=== PATIENT | female | born 1955 | race Caucasian/White ===

== ENCOUNTER 2017-01-16 14:27 | Emergency (ER) | payer OTHER ==
--- NOTE | 2017-01-16 15:25 | RAD ---
3 VIEW LEFT SHOULDER: Date: 01/16/17 INDICATION: Fall, pain. FINDINGS: No fracture or dislocation identified. There is a high-riding humeral head which can be seen in the setting of chronic rotator cuff tear. Osteoarthritis is present. IMPRESSION: Chronic findings of the left shoulder. No acute fracture or dislocation. POS: [facility]
--- NOTE | 2017-01-16 15:28 | RAD ---
3 VIEW LUMBAR SPINE: Date: 01/16/17 INDICATION: Pain, fall. FINDINGS: No compression fracture or subluxation. There is moderate multilevel degenerative change. IMPRESSION: No acute compression fracture. POS: [facility]
--- NOTE | 2017-01-16 15:33 | RAD ---
AP CHEST: Date: 01/16/17 HISTORY: Injury, status post fall. COMPARISON: 08/04/16. FINDINGS: Heart size is within normal limits for portable technique. The lungs are clear of infiltrative proce ss. No rib fractures or pneumothorax. IMPRESSION: Unremarkable AP chest. POS: [facility]
== END 2017-01-16 16:05 | disposition home or self-care (01) ==
LOC: BURERS 14:27
DX: S43.402A Unspecified sprain of left shoulder joint, initial encounter (principal); M54.5 Low back pain; F17.220 Nicotine dependence, chewing tobacco, uncomplicated; W10.9XXA Fall (on) (from) unspecified stairs and steps, initial encounter
CPT/HCPCS: 71010; 72100; 96372; J2270

== ENCOUNTER 2017-11-03 18:48 | Emergency (ER) | payer OTHER ==
[2017-11-03] MEDS ORDERED: Ketorolac Tromethamine 30 MG/ML VIAL ONE (20:10)
[2017-11-03 20:28] LABS: Bilirubin Negative (Negative); Blood, Urine Large (Negative); Clarity Cloudy (Clear); Glucose, Urine (Dipstick) Negative (Negative); Leukocyte Negative (Negative); Nitrite Negative (Negative); Protein, Urine (Dipstick) Trace mg/dL (Neg-Trace); Specific Gravity, Urine 1.025 (1.005-1.030)
[2017-11-03 20:31] LABS: ALT (SGPT) 12 U/L (8-55); AST (SGOT) 15 U/L (5-34); Albumin 4.1 g/dL (3.4-4.8); Alkaline Phosphatase 88 U/L (40-150); Anion Gap 14 mmol/L (10-20); BUN (Urea Nitrogen) 13 mg/dL (9.8-20.1); Bilirubin, Total 0.4 mg/dL (0.2-1.2); Calc. Creatinine Clearance 0 mL/min (70-130); Calcium 9.3 mg/dL (7.8-10.44); Carbon Dioxide 27 mmol/L (23-31); Chloride 104 mmol/L (98-107); Estimated GFR-MDRD 65; Globulin 3.6 g/dL (2.4-3.5); Glucose 108 mg/dL (80-115); Potassium 3.9 mmol/L (3.5-5.1); Protein, Total 7.7 g/dL (6.0-8.3); Sodium 141 mmol/L (136-145)
[2017-11-03 20:34] LABS: Eosinophils 3 % (0-10); Hemoglobin 13.4 g/dL (12.0-16.0); Lymphocytes 25 % (21-51); MDiff Complete? YES; Mean Corpuscular HGB CONC 33.2 g/dL (32.0-36.0); Mean Corpuscular Hemoglobin 31.3 pg (27.0-31.0); Mean Corpuscular Volume 94.3 fl (81.0-99.0); Mean Platelet Volume 6.6 fL (7.4-10.4); Monocytes 4 % (0-10); Neutrophil 68 % (42-75); Platelet Count 229 thou/uL (130-400); Red Blood Cell (RBC) Count 4.28 mill/uL (4.20-5.40); White Blood Cell (WBC) Count 6.9 thou/uL (4.8-10.8)
[2017-11-03 20:39] LABS: Bacteria/HPF 2+ HPF (None Seen); Crystals/HPF None Seen HPF (Negative); Hyaline Casts/LPF NONE SEEN LPF (0-3 Hyaline); Other Casts/LPF None Seen LPF (0-3 Hyaline); Oval Fat Bodies/HPF None Seen HPF (None Seen); Renal Epithelial None Seen HPF (0-3); Sperm/HPF None Seen HPF (None Seen); Transitional Epithelial NONE SEEN HPF (0-3); Trichomonas/HPF None Seen HPF (None Seen); Yeast-All Forms None Seen HPF (None Seen)
[2017-11-03] MEDS ORDERED: HYDROcodone/Acetaminophen 10/325 mg Tablet ONE (20:45)
--- NOTE | 2017-11-03 23:44 | CT ---
PRELIMINARY REPORT/[facility]/EMERGENCY AFTER HOURS PROCEDURE: EXAM: CT Abdomen and Pelvis Without Intravenous Contrast CLINICAL HISTORY: 62 years old, female; Pain; Abdominal pain; Flank; Left lower quadrant (llq); Patient HX: Llq pain si nce this am TECHNIQUE: Axial computed tomography images of the abdomen and pelvis without intravenous contrast. Coronal reformatted images were created and reviewed. COMPARISON: No relevant prior studies available. FINDINGS: Lower thorax: No acute findings. ABDOMEN: Liver: Unremarkable. Gallbladder and bile ducts: Unremarkable. No calcified stones. No ductal dilation. Pancreas: There is partial fatty replacement of the pancreas. No ductal dilation. Spleen: Unremarkable. No splenomegaly. Adrenals: Unremarkable. No mass. Kidneys and ureters: There is a 5 mm calculus in the terminal left ureter with mild left obstructive uropathy. There is additional nonobstructing left nephrolithiasis. Stomach and bowel: Unremarkable. No obstruction. No mucosal thickening. Appendix: The appendix is unremarkable and seen best on axial image 85 of series 2. PELVIS: Bladder: Unremarkable. No stones. Reproductive: There are postoperative changes of hysterectomy. ABDOMEN and PELVIS: Intraperitoneal space: Unremarkable. No free air. No significant fluid collection. Bones/joints: There is diffuse osteopenia and there are degenerative changes of the spine. No acute f racture. No dislocation. Soft tissues: Unremarkable. Vasculature: There are atherosclerotic aortic and iliac artery calcifications. No abdominal aortic aneurysm. Lymph nodes: Unremarkable. No enlarged lymph nodes. IMPRESSION: 1. There is a 5 mm calculus in the terminal left ureter with mild left obstructive uropathy. 2. There is additional nonobstructing left nephrolithiasis. Thank you for allowing us to participate in the care of your patient. Dictated and Authenticated by: Morgan Arnett MD 11/03/2017 8:24 PM Central Time ([place] & [place]) FINAL REPORT CT ABDOMEN AND PELVIS WITHOUT CONTRAST 11/03/2017 Comparison is made with the prior CT dated 08/04/2016 which was done with IV contrast. The lung bases are clear. The liver, spleen, pancreas, adrenal glands, and abdominal aorta showed no acute findings. The gallbladder is largely collapsed and is not well-evaluated. A non-obstructing calculus is seen in the left kidney. Additionally, there is a 4-5 mm distal left ureteral calculus a t the UVJ that is causing very mild left hydronephrosis and hydroureter. I do not see any right sarah l calculi. CT of the pelvis showed no pelvic masses, fluid collections, or inflammatory changes. IMPRESSION: 1. A 4-5 mm distal left ureteral calculus causing mild left hydronephrosis and hydroureter. 2. Small non-obstructing left renal calculus. Report in agreement with the preliminary reading by Lan. POS: [facility]
== END 2017-11-03 21:06 | disposition home or self-care (01) ==
LOC: BURERS 18:48
DX: N13.2 Hydronephrosis with renal and ureteral calculous obstruction (principal); F17.220 Nicotine dependence, chewing tobacco, uncomplicated
CPT/HCPCS: 74176; 80053; 81003; 81015; 85025; 87086; 94760; 96374; 96375; J1885

== ENCOUNTER 2018-07-14 14:32 | Outpatient (CLI) | payer MEDICAID ==
--- NOTE | 2018-07-14 16:59 | RAD ---
CHEST TWO VIEWS 07/14/18 The heart is normal in size. There is no mediastinal widening or shift. The right lung is clear. Ther e is an area of linear streaking in the lingula on the left side that is likely subsegmental atelecta sis. Sometimes this can be a secondary sign of an underlying rib fracture. No fractures were visible, but the ribs are not seen exceptionally well. Dedicated rib films will be needed to assess this fur ther if desired. There are no effusions or signs of pneumothorax. The trachea is midline. The other b carson structures also appear intact. IMPRESSION: Streaky subsegmental atelectasis in the lingula on the left side. Occasionally, this could be a secon makeda sign of an underlying rib fracture. POS: [facility]
== END 2018-07-14 14:33 | disposition home or self-care (01) ==
LOC: BURRAD 14:32
PROVIDERS: ATTEND Physician Assistant
DX: W19.XXXA Unspecified fall, initial encounter (principal); J98.11 Atelectasis
CPT/HCPCS: 71046

== ENCOUNTER 2018-07-22 11:10 | Outpatient (CLI) | payer MEDICAID ==
--- NOTE | 2018-07-22 15:25 | RAD ---
LEFT RIBS 3 VIEWS: Date: 07/22/18 HISTORY: Patient fell 2 days ago. Pain. COMPARISON: None. FINDINGS: There is a minimally displaced fracture involving the lateral left third and fourth ribs. Evaluation of the lower ribs is limited on this examination. IMPRESSION: Fracture of lateral third and fourth ribs. POS: [facility]
== END 2018-07-22 11:11 | disposition home or self-care (01) ==
LOC: BURRAD 11:10
PROVIDERS: ATTEND Physician Assistant
DX: R07.81 Pleurodynia (principal); S22.42XA Multiple fractures of ribs, left side, initial encounter for closed fracture

== ENCOUNTER 2018-12-14 14:40 | Outpatient (CLI) | payer MEDICAID ==
--- NOTE | 2018-12-14 18:44 | RAD ---
RIGHT FIFTH FINGER 12/14/18 No major fracture was seen. There is a small cortical irregularity at the base of the proximal phalan x of the fifth digit, however. it appears more old than new, but if it correlated with the exact site of pain, then followup films in 7 to 10 days might be in order. There is no dislocation. IMPRESSION: No definite acute finding. Cortical irregularity of the proximal phalanx that seems more likely old t oconnor new, but see discussion above. Code T POS: [facility]
--- NOTE | 2018-12-14 18:50 | RAD ---
RIGHT HAND THREE VIEWS: 12/14/18 No major fracture was appreciated, though the patient's osteoporosis could mask subtle injuries. The carpal relationships seem normal. As noted on the film of the fifth finger, there is a small cortical irregularity at the base of the proximal phalanx that may or may not be currently significant. IMPRESSION: No definite acute finding. POS: [facility]
--- NOTE | 2018-12-14 18:52 | RAD ---
NASAL BONES 12/14/18 There is a small line of the distal end of the nasal bone on the right lateral view that suggests the re is probably a small nondisplaced fracture here. The septum is midline. The maxillary sinuses seem clear. The visible orbital rims appear intact. IMPRESSION: Probable small nondisplaced fractures of the nasal bones, most likely right side. Code T POS: [facility]
== END 2018-12-14 14:41 | disposition home or self-care (01) ==
LOC: BURRAD 14:40
PROVIDERS: ATTEND Physician Assistant
DX: S09.92XA Unspecified injury of nose, initial encounter (principal); M79.641 Pain in right hand; M79.644 Pain in right finger(s)
CPT/HCPCS: 70160

== ENCOUNTER 2018-12-22 09:06 | Outpatient (CLI) | payer MEDICAID ==
--- NOTE | 2018-12-23 07:26 | RAD ---
RIGHT FIFTH FINGER 12/22/18 Today's exam shows that there is a very subtle fracture at the base of the fifth proximal phalanx. Th ere is no displacement. The IP joints of the finger appear normal. IMPRESSION: Subtle undisplaced fracture at the base of the proximal phalanx. POS: [facility]
--- NOTE | 2018-12-23 07:26 | RAD ---
RIGHT HAND THREE VIEWS: 12/22/18 Comparison is made with 12/14 study. On the prior study, it was noted that there was a slightly irregu larity at the base of the proximal phalanx of the fifth finger, but it was not definite for fracture. a repeat study today confirms there is in fact a small undisplaced fracture in this location. It ext ends into the fifth MCP joint. There is no displacement. IMPRESSION: Undisplaced fracture at the base of the proximal phalanx of the fifth digit. More definite on today's film than the prior one. Code T POS: HOME
== END 2018-12-22 09:07 | disposition home or self-care (01) ==
LOC: BURRAD 09:06
PROVIDERS: ATTEND Physician Assistant
DX: M79.644 Pain in right finger(s) (principal); S62.616A Displaced fracture of proximal phalanx of right little finger, initial encounter for closed fracture; W19.XXXA Unspecified fall, initial encounter

== ENCOUNTER 2020-12-13 14:23 | Outpatient (CLI) | payer MEDICAID | END 2020-12-13 14:24 | disposition home or self-care (01) | LOC: BURRAD 14:23 | PROVIDERS: ATTEND Physician Assistant | DX: M25.511 Pain in right shoulder (principal); M25.531 Pain in right wrist; G89.11 Acute pain due to trauma; W19.XXXA Unspecified fall, initial encounter ==

== ENCOUNTER 2021-04-05 11:47 | Outpatient (CLI) | payer MEDICAID | END 2021-04-05 11:48 | disposition home or self-care (01) | LOC: BURRAD 11:47 | PROVIDERS: ATTEND Family Medicine | DX: S29.019A Strain of muscle and tendon of unspecified wall of thorax, initial encounter (principal) ==

== ENCOUNTER 2021-12-10 10:20 | Outpatient (CLI) | payer MEDICARE, MEDICAID | END 2021-12-10 10:21 | disposition home or self-care (01) | LOC: BUREKG 10:20 | PROVIDERS: ATTEND Physician Assistant | DX: M54.6 Pain in thoracic spine (principal); R55 Syncope and collapse; M47.816 Spondylosis without myelopathy or radiculopathy, lumbar region | CPT/HCPCS: 72072; 72100; 93005; 93010 ==

== ENCOUNTER 2024-06-03 10:52 | Emergency (ER) | payer MEDICARE, MEDICAID ==
[~2024-06-03 10:52] MED LIST: Iopamidol 370 76% 100 ML VIAL ONE
[2024-06-03 11:37] LABS: #Basophils 0.1 thou/uL (0.0-0.2); #Eosinphils 0.3 thou/uL (0.0-0.7); #Lymphocytes 1.9 thou/uL (1.20-3.40); #Monocytes 0.3 thou/uL (0.11-0.59); #Neutrophils 2.6 thou/uL (1.40-6.50); %Basophils 1.5 % (0.0-1.0); %Eosinophils 6.3 % (0.0-10.0); %Monocytes 5.8 % (0.0-10.0); %Neutrophils 50.4 % (42.0-75.0); Hematocrit 37.5 % (36.0-47.0); Hemoglobin 12.3 g/dL (12.0-16.0); Mean Corpuscular HGB CONC 32.9 g/dL (32.0-36.0); Mean Corpuscular Hemoglobin 29.7 pg (27.0-31.0); Mean Corpuscular Volume 90.5 fl (78.0-98.0); Mean Platelet Volume 7.2 fL (7.4-10.4); Platelet Count 210 10x3/uL (130-400); RBC Distribution Width 12.3 % (11.5-14.5); Red Blood Cell (RBC) Count 4.14 mill/uL (4.20-5.40); White Blood Cell (WBC) Count 5.2 10x3/uL (4.8-10.8)
[2024-06-03 11:53] LABS: ALT (SGPT) 12 U/L (8-55); AST (SGOT) 15 U/L (5-34); Albumin 3.7 g/dL (3.4-4.8); Alkaline Phosphatase 67 U/L (40-110); Anion Gap 12 mmol/L (10-20); BUN (Urea Nitrogen) 11 mg/dL (9.8-20.1); Bilirubin, Total 0.3 mg/dL (0.2-1.2); Calc. Creatinine Clearance 0 mL/min (70-130); Carbon Dioxide 27 mmol/L (23-31); Chloride 107 mmol/L (98-107); Estimated GFR 74; Globulin 2.6 g/dL (2.4-3.5); Glucose 126 mg/dL (80-115); Protein, Total 6.3 g/dL (5.8-8.1); Sodium 142 mmol/L (136-145); Troponin I Less than 0.010 ng/mL (< 0.028)
== END 2024-06-03 13:47 | disposition home or self-care (01) ==
LOC: BURERS 10:52
DX: R55 Syncope and collapse (principal); I10 Essential (primary) hypertension; F17.220 Nicotine dependence, chewing tobacco, uncomplicated
CPT/HCPCS: 36415; 70450; 74177; 80053; 83605; 84484; 85025; 93005; 96360; Q9967